=== PATIENT | male | born 1990 | race Two or more races ===

== ENCOUNTER 2024-07-16 18:52 | Emergency (ER) | payer SELFPAY ==
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
[2024-07-16 19:02] VITALS: BP 134/89; PULSE 84; RESP 16; TEMP 36.9; O2SAT 98
[2024-07-16 19:14] VITALS: BMI 27.3
[2024-07-16] MEDS: HYDROcodone/APAP 10/325 TAB PO (19:26)
[2024-07-16] MEDS: DIPHTH,PERTUSS(ACELL),TET VAC 0.5 ML SYR- ADULT IMi (19:35)
--- NOTE | 2024-07-16 20:57 | XR_ITS ---
Examination: Right ankle 2 views Technique one AP lateral right ankle 2 views Comparison: July 16, 2024 1908 p.m. Comparison July 16, 2024 1856 hrs. Indications: Ankle dislocation with ankle fractures today Findings: Reduction ankle dislocation Marked improvement in alignment fracture distal fibular shaft and medial malleolus Impression: Reduction ankle dislocation Marked improvement in alignment fracture distal fibular shaft and medial malleolus
[2024-07-16 22:07] VITALS: PULSE 109; RESP 16; TEMP 36.6; O2SAT 96
== END 2024-07-16 22:25 | disposition home or self-care (01) ==
PROVIDERS: Emergency Provider Emergency Medicine
DX: S82.851A Displaced trimalleolar fracture of right lower leg, initial encounter for closed fracture (principal); X50.1XXA Overexertion from prolonged static or awkward postures, initial encounter; S50.811A Abrasion of right forearm, initial encounter; Z23 Encounter for immunization
CPT/HCPCS: 27818; 73600; 73610; 90715; 99283; A9270